=== PATIENT | female | born 1950 | race Caucasian/White ===

== ENCOUNTER → 2018-07-28 06:49 | Outpatient (CLI) | payer MEDICARE, OTHER, SELFPAY ==
[2018-07-28 08:57] LABS: Hemoglobin A1c 6.8 % (4.2-6.3)
[2018-07-28 08:59] LABS: ALB/GLOB Ratio 0.9 RATIO (0.9-2.4); AST(SGOT) 31 U/L (15-37); Alanine Aminotransfer ALT/SGPT 25 U/L (13-56); Albumin, Serum 3.3 g/dL (3.2-5.0); Alkaline Phosphatase 69 U/L (45-117); Anion Gap 5 (5-15); BUN 14 mg/dL (7-18); BUN/Creat Ratio 18.1 RATIO (10-20); Calcium,Total 8.7 mg/dL (8.5-10.1); Chloride 107 mmol/L (98-107); Cholesterol 188 mg/dL (200); Creatinine, Serum 0.78 mg/dL (0.55-1.02); EST Glomerular Filtration Rate 79 mL/min (>60); Est Glom Filt Rate - Afr Amer 96 mL/min (>60); Globulin 3.5 g/dL (2.2-4.2); Glucose 133 mg/dL (74-106); High Density Lipoprotein 58 mg/dL; Magnesium 1.9 mg/dL (1.6-2.6); Potassium 3.6 mmol/L (3.5-5.1); Protein, Total 6.8 g/dL (6.4-8.2); Sodium Level 141 mmol/L (136-145); Thyroid Stim Hormone (TSH) 3.52 uIU/mL (0.358-3.74); Triglycerides 143 mg/dL; Very Low Density Lipoprotein 29 mg/dL (5-40)
== END ==
PROVIDERS: Family Provider Family Medicine; PCP Family Medicine; Referring Provider Family Medicine; Visit Provider Family Medicine
DX: E11.9 Type 2 diabetes mellitus without complications (principal); I10 Essential (primary) hypertension; E78.00 Pure hypercholesterolemia, unspecified
CPT/HCPCS: 36415; 80053; 80061; 83036; 83735; 84443

== ENCOUNTER → 2019-01-15 | Outpatient (CLI) | payer MEDICARE, OTHER, SELFPAY ==
[2019-01-15 10:41] LABS: Hemoglobin A1c 6.6 % (4.2-6.3)
[2019-01-15 10:58] LABS: ALB/GLOB Ratio 0.9 RATIO (0.9-2.4); AST(SGOT) 27 U/L (15-37); Alanine Aminotransfer ALT/SGPT 30 U/L (13-56); Albumin, Serum 3.3 g/dL (3.2-5.0); Alkaline Phosphatase 78 U/L (45-117); Anion Gap 8 (5-15); BUN 11 mg/dL (7-18); BUN/Creat Ratio 13.3 RATIO (10-20); Calcium,Total 8.7 mg/dL (8.5-10.1); Chloride 105 mmol/L (98-107); Cholesterol 179 mg/dL (200); Creatinine, Serum 0.83 mg/dL (0.55-1.02); EST Glomerular Filtration Rate 73 mL/min (>60); Est Glom Filt Rate - Afr Amer 89 mL/min (>60); Globulin 3.7 g/dL (2.2-4.2); Glucose 132 mg/dL (74-106); High Density Lipoprotein 60 mg/dL; Magnesium 2.1 mg/dL (1.6-2.6); Potassium 3.9 mmol/L (3.5-5.1); Sodium Level 142 mmol/L (136-145); Thyroid Stim Hormone (TSH) 1.84 uIU/mL (0.358-3.74); Triglycerides 142 mg/dL; Very Low Density Lipoprotein 28 mg/dL (5-40)
== END | disposition home or self-care (01) ==
LOC: LAB 01-13 09:39 → LAB.FUTURE 09:20 → LAB 09:27
PROVIDERS: Family Provider Family Medicine; PCP Family Medicine; Referring Provider Family Medicine; Visit Provider Family Medicine
DX: E11.9 Type 2 diabetes mellitus without complications (principal); I10 Essential (primary) hypertension; E78.00 Pure hypercholesterolemia, unspecified
CPT/HCPCS: 36415; 80053; 80061; 83036; 83735; 84443

== ENCOUNTER → 2019-07-09 09:40 | Outpatient (CLI) | payer MEDICARE, OTHER, SELFPAY ==
[2019-07-09 10:14] LABS: Vitamin B12 352 pg/mL (211-911)
[2019-07-09 10:22] LABS: ALB/GLOB Ratio 0.9 RATIO (0.9-2.4); AST(SGOT) 22 U/L (15-37); Alanine Aminotransfer ALT/SGPT 22 U/L (13-56); Albumin, Serum 3.3 g/dL (3.2-5.0); Alkaline Phosphatase 79 U/L (45-117); Anion Gap 7 (5-15); BUN 13 mg/dL (7-18); BUN/Creat Ratio 15.1 RATIO (10-20); Chloride 108 mmol/L (98-107); Cholesterol 190 mg/dL (200); Creatinine, Serum 0.86 mg/dL (0.55-1.02); EST Glomerular Filtration Rate 70 mL/min (>60); Est Glom Filt Rate - Afr Amer 85 mL/min (>60); Globulin 3.6 g/dL (2.2-4.2); Glucose 150 mg/dL (74-106); High Density Lipoprotein 63 mg/dL; Potassium 3.7 mmol/L (3.5-5.1); Protein, Total 6.9 g/dL (6.4-8.2); Sodium Level 143 mmol/L (136-145); Triglycerides 210 mg/dL; Very Low Density Lipoprotein 42 mg/dL (5-40)
[2019-07-09 10:28] LABS: Hemoglobin A1c 7.1 % (4.2-6.3)
== END ==
PROVIDERS: PCP Family Medicine; Referring Provider Family Medicine; Visit Provider Family Medicine
DX: E11.9 Type 2 diabetes mellitus without complications (principal); I10 Essential (primary) hypertension; E78.00 Pure hypercholesterolemia, unspecified
CPT/HCPCS: 36415; 80053; 80061; 82607; 83036; 83735

== ENCOUNTER → 2019-09-29 09:27 | Outpatient (CLI) | payer MEDICARE, SELFPAY ==
--- NOTE | 2019-09-29 09:29 | US_ITS ---
PROCEDURES: ULTRASOUND AORTA REASON FOR EXAM: Female, 68 years old. Screening for AAA TECHNIQUE: Ultrasound evaluation of the aorta was performed with real-time and static edge-scale imaging. COMPARISON: None. FINDINGS: There is no elongation or tortuosity of the abdominal aorta. Aorta measures: Proximal 2.1 cm. Middle 1.6 cm. Distal 1.7 cm. Aorta measure transversely: Proximal 1.8 cm. Middle 1.3 cm. Distal 1.3 cm. Right iliac artery measures: 1.2 cm. Right iliac artery measure transversely: 0.9 cm. Left iliac artery measures: 1.0 cm. Left iliac artery measure transversely: 0.9 cm. There is no demonstrated aneurysm.. US/Aorta IMPRESSION: Normal abdominal aorta. Electronically Signed: Brent Fleming, at 13:50 EDT , Service support ,
--- NOTE | 2019-09-29 09:29 | BI_ITS ---
MAMMOGRAPHY - BILATERAL SCREENING REASON FOR EXAM: Female, 68 years old. Routine annual screening examination. PERTINENT HISTORY: Non-contributory. TECHNIQUE: Digital bilateral breast kirill (3D mammographic acquisition) in the CC and MLO projections. 2-D mediolateral oblique (MLO) and craniocaudad (CC) views of both breasts were obtained. CAD: Full Field Digital Mammography with Computer Added Detection was performed. COMPARISON: Comparison is made with prior outside examination dated 09/17/2017. FINDINGS: Breast Composition: The breasts are almost entirely fatty. There are no dominant masses or suspicious calcifications. No other significant abnormalities are identified. There has been no significant change since the prior study. BI/SCREEN MAMM (CAD) W/KIRILL BILAT IMPRESSION: Stable bilateral screening mammogram. Yearly follow-up mammogram recommended. (A) ASSESSMENT CATEGORY: BIRADS Category 1: Negative. A letter regarding these results will be sent to the patient by the facility within 30 days. Approximately 10% of breast cancers are not detected by mammography. A normal mammogram should not delay biopsy of a clinically suspicious abnormality. [id number] Electronically Signed: Brent Fleming, at 11:07 EDT , Service support ,
--- NOTE | 2019-09-29 10:14 | BD_ITS ---
STUDY: DUAL ENERGY X-RAY ABSORPTIOMETRY / DXA REASON FOR EXAM: Female, 68 years old. MORTGAGE LOAN REVIEWER-SURGICAL EARLY AT 46 YRS OLD -- HX OF HRT FOR 1 YR IN PAST -- DIABETIC- TAKES MEDICATION -- TAKES MULTIVITAMIN -- DOES LITTLE EXERCISE -- HX OF LEFT ANKLE FX -- LAURA OF 0.75 INCH TECHNIQUE: Bone Mineral Density (BMD) measurements of lumbar spine and bilateral hips were obtained. COMPARISON: None. FINDINGS: Lumbar Spine (L1-L4): g/cm2 (1.147) / T-score (-0.2) / Z-score (1.4) Findings are suggestive of normal bone density with a low fracture risk. Left Femur Total: g/cm2 (0.925) / T-score (-0.7) / Z-score (0.6) Left Femoral Neck: g/cm2 (0.820) / T-score (-1.6) / Z-score (0.0) Right Femur Total: g/cm2 (0.942) / T-score (-0.4) / Z-score (0.8) Right Femoral Neck: g/cm2 (0.816) / T-score (-1.6) / Z-score (-0.1) BD/Dexa Bone Density Study IMPRESSION: The patient is considered osteopenic as outlined below according to World Jules Organization (WHO) criteria with a moderate fracture risk. Reference Information: The T-score is the number of standard deviations above or below the standard which is normal for young adults at their peak bone mineral density. The World Health Organization (WHO) interprets the T-scores as follows: Above -1 Normal bone density Between -1 and -2.5 Osteopenia Equal to / or below -2.5 Osteoporosis As a practical clinical guideline, osteopenia may be graded as follows: Mild -1 through -1.5 Moderate -1.6 through -2.0 Severe -2.1 through -2.4 The Z-score is the number of standard deviations above or below age-matched controls. A Z-score of less than -1.5 would be considered abnormal. References: 1. NIH Osteoporosis and Related Bone Diseases http://www.osteo.org 2. International Society for Clinical Densitometry http://www.iscd.org 3. National Osteoporosis Foundation http://www.nof.org Electronically Signed: Brent Fleming, at 15:38 EDT , Service support ,
== END ==
PROVIDERS: PCP Family Medicine; Referring Provider Family Medicine; Visit Provider Family Medicine
DX: Z12.31 Encounter for screening mammogram for malignant neoplasm of breast (principal); Z78.0 Asymptomatic menopausal state; Z13.6 Encounter for screening for cardiovascular disorders
CPT/HCPCS: 76775; 77063; 77067; 77080

== ENCOUNTER → 2020-01-10 06:03 | Outpatient (CLI) | payer MEDICARE, OTHER, SELFPAY ==
[2020-01-10 07:05] LABS: Basophil# 0.07 X10^3/uL; Basophil% 1.1 % (0-1); Eosinophils% 9.7 % (0-5); Hemoglobin 14.7 g/dL (12.0-15.0); Mean Corp Hgb Conc 33.4 g/dL (32-36); Mean Corpuscular Hgb 31.4 pg (27.0-32.0); Mean Platelet Vol. 9.9 fl (6.2-12.0); Monocyte# 0.61 X10^3/uL; Monocyte% 9.9 % (0-10); NRBC Flagged by Analyzer 0 % (0-5); Neutrophil # 1.98 X10^3/uL (2.7-7.7); Neutrophil % 32.1 % (47-70); Platelet Count 250 K/mm3 (150-450); RBC Distribution Width CV 13.6 % (11.6-14.6); RBC Distribution Width SD 47.5 fl (35.1-43.9); Red Blood Count 4.68 M/mm3 (4.2-5.4); White Blood Count 6.2 K/mm3 (4.4-11.0)
[2020-01-10 07:55] LABS: ALB/GLOB Ratio 0.9 RATIO (0.9-2.4); AST(SGOT) 29 U/L (15-37); Alanine Aminotransfer ALT/SGPT 29 U/L (13-56); Albumin, Serum 3.2 g/dL (3.2-5.0); Alkaline Phosphatase 79 U/L (45-117); Anion Gap 7 (5-15); BUN 13 mg/dL (7-18); BUN/Creat Ratio 16.3 RATIO (10-20); Calcium,Total 8.6 mg/dL (8.5-10.1); Chloride 105 mmol/L (98-107); Cholesterol 154 mg/dL (200); EST Glomerular Filtration Rate 76 mL/min (>60); Est Glom Filt Rate - Afr Amer 92 mL/min (>60); Globulin 3.6 g/dL (2.2-4.2); Glucose 110 mg/dL (74-106); High Density Lipoprotein 65 mg/dL; Potassium 3.6 mmol/L (3.5-5.1); Protein, Total 6.8 g/dL (6.4-8.2); Sodium Level 141 mmol/L (136-145); Thyroid Stim Hormone (TSH) 3.45 uIU/mL (0.358-3.74); Triglycerides 157 mg/dL; Very Low Density Lipoprotein 31 mg/dL (5-40)
== END ==
PROVIDERS: PCP Family Medicine; Referring Provider Family Medicine; Visit Provider Family Medicine
DX: I10 Essential (primary) hypertension (principal); E78.5 Hyperlipidemia, unspecified; E11.65 Type 2 diabetes mellitus with hyperglycemia
CPT/HCPCS: 36415; 80053; 80061; 82043; 84443; 85025

== ENCOUNTER 2020-02-29 20:37 | Emergency (ER) | payer MEDICARE, OTHER, SELFPAY ==
[2020-02-29 20:39] VITALS: BP 159/66; PULSE 76; RESP 16; TEMP 36.2; O2SAT 94; BMI 41.8
--- NOTE | 2020-02-29 20:52 | ED.DCSUM_ITS ---
History of Present Illness Chief Complaint: Sore Throat Informant: Patient Onset: Today Context: Sudden Onset Timing: Continuous Quality: Swelling inferior and anterior right ear Location: Pain Current Severity: Mild Maximum Severity: Moderate Worsened by: Nothing Relieved by: - - Nothing Associated Symptoms: - - No complaint of fever or chills. Did report right ear pain. Denies dental pain. Denies difficulty opening or closing her mouth. Denies change in voice or difficulty swallowing. No history of cancer. No history of night sweats or weight loss. Narrative: Patient is a pleasant 69-year-old woman who presents with abrupt onset of pain and swelling that she localizes over the right parotid gland. She denies any odor to her breath. She denies any fever or chills. She denies dental pain. She denies difficulty opening or closing her mouth. She denies dysphonia or dysphagia. There is no history of drooling. Prior similar symptoms: No Recent Illness/Hospitalization: No - Past Medical History (1) History of type 2 diabetes mellitus Status: Acute (2) History of hypertension Status: Acute Past Medical History - Allergies and Home Meds Allergies/Adverse Reactions: Allergies No Known Allergies Allergy (Verified 02/29/20 20:38) Primary Care Physician: James Coffman MD [Primary Care Provider] - Prior records reviewed: Yes Surgical History: noncontributory Lives: Alone Smoking Status: Never smoker Alcohol: None Review of Systems General: Denies: Chills, Fever, Malaise, Subjective, Sweats Eyes: Denies: Visual changes - bilaterally, Blurred Vision - bilaterally ENT: Reports: Right ear pain, - - Complains of pain right side of her neck/face.. Denies: Bilateral ear pain, Rhinorrhea, Sore throat Respiratory: Denies: Dyspnea, Cough, Sputum, Dyspnea on exertion Gastrointestinal: Denies: Nausea, Vomiting Skin: Denies: Rash Neurological: Denies: Headache Allergy: Denies: Uticaria, Swelling of the mouth, Swelling of the tongue Physical Exam Vital Signs/Narrative: Vital Signs Temp Pulse Resp BP Pulse Ox 02/29/20 20:39 97.1 F L 76 16 159/66 H 94 Inital Vital Signs reviewed: Yes General: Well nourished, Well developed, Obese Head: Normocephalic, Atraumatic ENT: Moist mucous membranes, Nasal congestion, No nasal trauma, No rhinorrhea, Sinus tenderness, TM's clear, - - There is tenderness over the right parotid. Pressure/milking of the parotid reveals no drainage from Stensen's duct. There is no cervical lymphadenopathy. Trachea is midline. There is no inspiratory expiratory stridor.. Negative for: TM erythema left, TM erythema right Mouth/Throat: Normal inspection lips/gums, Normal oral mucosa, No dental tenderness, No focal abscess, Normal posterior oropharynx, No sublingual edema, Normal Stensen's duct Neck: Supple, No lymphadenopathy, No JVD. Negative for: Nontender Cardiovascular: Regular rate, Regular rhythm, No murmurs, Normal S1, Normal S2 Respiratory: No distress, CTA bilaterally Skin: Normal color, No rash, No Trauma. Negative for: Cyanosis, Diaphoresis, Jaundice Neurological: Alert, Oriented x3, Cranial nerves II-XII grossly intact, Normal Strength, Normal Sensation, Normal DTR Psychological: Normal affect Diagnostic/Tx/Re-eval - Medical Decision Making Differential diagnosis includes Sjogren's, sialolithiasis, viral infection due to mumps, flu or other. The latter is unlikely since this is unilateral. Patient was treated with lemon drops and amoxicillin. ED Disposition - Plan for ED Patient: Disposition: Home or Assisted Living Diagnosis: Parotid sialolithiasis Instructions: ED Salivary Gland Stones Prescriptions: Amoxicillin 500 mg PO TID #14 tab Transmission Status: Pending to [facility] Referrals: James Coffman MD [Primary Care Provider] - As Needed Jordan Swanson MD [STAFF PHYSICIAN] - 3-5 Days if not improving Additional Instructions: Suck on lemon drops hourly while awake.
[2020-02-29] MEDS: AMOXICILLIN 500 MG CAPSULE PO (21:03)
== END 2020-02-29 21:20 | disposition home or self-care (01) ==
LOC: ED 21:09
PROVIDERS: Emergency Provider Emergency Medicine; PCP Family Medicine
DX: K11.5 Sialolithiasis (principal); E66.9 Obesity, unspecified
CPT/HCPCS: 99283

== ENCOUNTER 2020-05-09 15:08 | Outpatient (RCR) | payer MEDICARE, OTHER, SELFPAY ==
[2020-05-09] MEDS: COVID-19 VACC, MRNA(PFIZER)/PF 30 MCG/0.3 ML SYRINGE IM (09:41)
[2020-05-30] MEDS: COVID-19 VACC, MRNA(PFIZER)/PF 30 MCG/0.3 ML SYRINGE IM (09:22)
== END 2020-08-08 23:59 ==
LOC: IMMUN 15:08
PROVIDERS: PCP Family Medicine; Visit Provider Family Medicine
DX: Z23 Encounter for immunization (principal)
CPT/HCPCS: 0001A; 0002A; 91300

== ENCOUNTER → 2020-07-03 06:07 | Outpatient (CLI) | payer MEDICARE, OTHER, SELFPAY ==
[2020-07-03 07:51] LABS: Hemoglobin A1c 6.2 % (3.8-5.6)
[2020-07-03 08:11] LABS: ALB/GLOB Ratio 0.9 RATIO (0.9-2.4); AST(SGOT) 24 U/L (15-37); Alanine Aminotransfer ALT/SGPT 25 U/L (13-56); Alkaline Phosphatase 66 U/L (45-117); Anion Gap 9 (5-15); BUN 14 mg/dL (7-18); BUN/Creat Ratio 20.6 RATIO (10-20); Calcium,Total 8.5 mg/dL (8.5-10.1); Chloride 106 mmol/L (98-107); Cholesterol 224 mg/dL (200); Creatinine, Serum 0.68 mg/dL (0.55-1.02); EST Glomerular Filtration Rate 92 mL/min (>60); Est Glom Filt Rate - Afr Amer 111 mL/min (>60); Globulin 3.5 g/dL (2.2-4.2); Glucose 118 mg/dL (74-106); High Density Lipoprotein 51 mg/dL; Potassium 3.4 mmol/L (3.5-5.1); Protein, Total 6.5 g/dL (6.4-8.2); Sodium Level 141 mmol/L (136-145); Thyroid Stim Hormone (TSH) 2.89 uIU/mL (0.358-3.74); Triglycerides 282 mg/dL; Very Low Density Lipoprotein 56 mg/dL (5-40)
[2020-07-03 09:35] LABS: Vitamin B12 250 pg/mL (211-911); Vitamin D,25 Hydroxy 25.7 ng/mL
== END ==
PROVIDERS: PCP Family Medicine; Visit Provider Family Medicine
DX: E11.9 Type 2 diabetes mellitus without complications (principal); I10 Essential (primary) hypertension; E78.2 Mixed hyperlipidemia; E55.9 Vitamin D deficiency, unspecified; Z79.899 Other long term (current) drug therapy
CPT/HCPCS: 36415; 80053; 80061; 82306; 82607; 83036; 83735; 84443

== ENCOUNTER → 2021-01-01 06:16 | Outpatient (CLI) | payer MEDICARE, OTHER, SELFPAY ==
[2021-01-01 07:29] LABS: ALB/GLOB Ratio 0.8 RATIO (0.9-2.4); AST(SGOT) 26 U/L (15-37); Alanine Aminotransfer ALT/SGPT 28 U/L (13-56); Albumin, Serum 3.1 g/dL (3.2-5.0); Alkaline Phosphatase 76 U/L (45-117); Anion Gap 4 (5-15); BUN 11 mg/dL (7-18); BUN/Creat Ratio 13.7 RATIO (10-20); Calcium,Total 8.8 mg/dL (8.5-10.1); Chloride 107 mmol/L (98-107); Cholesterol 151 mg/dL (200); EST Glomerular Filtration Rate 76 mL/min (>60); Est Glom Filt Rate - Afr Amer 92 mL/min (>60); Globulin 3.8 g/dL (2.2-4.2); Glucose 141 mg/dL (74-106); High Density Lipoprotein 58 mg/dL; Magnesium 1.8 mg/dL (1.6-2.6); Potassium 3.6 mmol/L (3.5-5.1); Protein, Total 6.9 g/dL (6.4-8.2); Sodium Level 142 mmol/L (136-145); Thyroid Stim Hormone (TSH) 2.39 uIU/mL (0.358-3.74); Triglycerides 233 mg/dL; Very Low Density Lipoprotein 47 mg/dL (5-40)
[2021-01-01 09:44] LABS: Hemoglobin A1c 6.3 % (3.8-5.6)
[2021-01-01 10:38] LABS: Vitamin B12 706 pg/mL (211-911); Vitamin D,25 Hydroxy 36.5 ng/mL
== END ==
PROVIDERS: PCP Family Medicine; Referring Provider Family Medicine; Visit Provider Family Medicine
DX: E11.9 Type 2 diabetes mellitus without complications (principal); I10 Essential (primary) hypertension; E78.2 Mixed hyperlipidemia; E55.9 Vitamin D deficiency, unspecified; E53.8 Deficiency of other specified B group vitamins
CPT/HCPCS: 36415; 80053; 80061; 82306; 82607; 83036; 83735; 84443

== ENCOUNTER → 2021-02-14 12:17 | Outpatient (CLI) | payer MEDICARE, OTHER, SELFPAY ==
--- NOTE | 2021-02-14 12:22 | RAD_ITS ---
STUDY: X-RAY - LUMBAR SPINE REASON FOR EXAM: Female, 70 years old. Lumbago with sciatica, unspecified side TECHNIQUE: 5 view(s) of the lumbar spine were obtained. COMPARISON: None FINDINGS: Normal lumbar lordosis. There is no substantial scoliosis. There is a normal alignment of the vertebrae. There is diffuse demineralization with multi-level endplate spondylosis. There is multi-level degenerative disc disease with multi-level disc space narrowing. There is no acute demonstrated fracture. Chronic compression fractures affecting the superior endplates of L1 and L2 The soft tissue structures are unremarkable. RAD/L/S Spine Min 4 Views IMPRESSION: Degenerative changes of the spine, as detailed above. No acute findings Electronically Signed: Ten Gibbs MD at 16:53 EST , Service support ,
== END ==
PROVIDERS: PCP Family Medicine; Referring Provider Family Medicine; Visit Provider Family Medicine
DX: M54.50 Low back pain, unspecified (principal)
CPT/HCPCS: 72110

== ENCOUNTER → 2021-07-02 | Outpatient (CLI) | payer MEDICARE, OTHER, SELFPAY ==
[2021-07-02 07:35] LABS: Microalbumin,Random Urine 31.6 mg/L (NO RANGE EST.); Microalbumin:Creatinine Ratio 18.9 mg/g CRE (<30 mg/g CRE)
[2021-07-02 07:45] LABS: Hemoglobin A1c 6.3 % (3.8-5.6)
[2021-07-02 07:46] LABS: ALB/GLOB Ratio 0.8 RATIO (0.9-2.4); AST(SGOT) 29 U/L (15-37); Alanine Aminotransfer ALT/SGPT 27 U/L (13-56); Albumin, Serum 3.2 g/dL (3.2-5.0); Alkaline Phosphatase 84 U/L (45-117); BUN 10 mg/dL (7-18); Calcium,Total 9.1 mg/dL (8.5-10.1); Cholesterol 169 mg/dL (200); Creatinine, Serum 0.77 mg/dL (0.55-1.02); EST Glomerular Filtration Rate 79 mL/min (>60); Est Glom Filt Rate - Afr Amer 96 mL/min (>60); Globulin 3.9 g/dL (2.2-4.2); Glucose 127 mg/dL (74-106); Protein, Total 7.1 g/dL (6.4-8.2)
[2021-07-02 07:47] LABS: Anion Gap 6 (5-15); Chloride 108 mmol/L (98-107); High Density Lipoprotein 58 mg/dL; Magnesium 2.1 mg/dL (1.6-2.6); Sodium Level 142 mmol/L (136-145); Triglycerides 250 mg/dL; Very Low Density Lipoprotein 50 mg/dL (5-40)
== END | disposition home or self-care (01) ==
PROVIDERS: PCP Family Medicine; Referring Provider Family Medicine; Visit Provider Family Medicine
DX: E11.9 Type 2 diabetes mellitus without complications (principal); I10 Essential (primary) hypertension; E78.2 Mixed hyperlipidemia
CPT/HCPCS: 36415; 80053; 80061; 82043; 82570; 83036; 83735

== ENCOUNTER → 2021-08-09 | Outpatient (CLI) | payer MEDICARE, OTHER, SELFPAY ==
--- NOTE | 2021-08-09 10:40 | BI_ITS ---
MAMMOGRAPHY - BILATERAL SCREENING REASON FOR EXAM: Female, 70 years old. Routine annual screening examination. PERTINENT HISTORY: Non-contributory. TECHNIQUE: Digital bilateral breast kirill (3D mammographic acquisition) in the CC and MLO projections. 2-D mediolateral oblique (MLO) and craniocaudad (CC) views of both breasts were obtained. CAD: Full Field Digital Mammography with Computer Added Detection was performed. COMPARISON: Comparison is made with prior study 09/29/2019. FINDINGS: Breast Composition: There are scattered areas of fibroglandular density. There are no dominant masses or suspicious calcifications. No other significant abnormalities are identified. There has been no significant change since the prior study. BI/SCRN MAMM (CAD)W/KIRILL BILAT IMPRESSION: Stable bilateral screening mammogram. Yearly follow-up mammogram recommended. (A) ASSESSMENT CATEGORY: BIRADS Category 1: Negative. A letter regarding these results will be sent to the patient by the facility within 30 days. Approximately 10% of breast cancers are not detected by mammography. A normal mammogram should not delay biopsy of a clinically suspicious abnormality. [id number] Electronically Signed: Brent Fleming MD at 12:09 EDT ,
== END | disposition home or self-care (01) ==
LOC: OPBI 10:39
PROVIDERS: PCP Family Medicine; Referring Provider Family Medicine; Visit Provider Family Medicine
DX: Z12.31 Encounter for screening mammogram for malignant neoplasm of breast (principal)
CPT/HCPCS: 77063; 77067

== ENCOUNTER → 2022-01-01 | Outpatient (CLI) | payer MEDICARE, OTHER, SELFPAY ==
[2022-01-01 08:47] LABS: Vitamin B12 1039 pg/mL (211-911); Vitamin D,25 Hydroxy 54.4 ng/mL
[2022-01-01 08:56] LABS: ALB/GLOB Ratio 0.9 RATIO (0.9-2.4); AST(SGOT) 23 U/L (15-37); Alanine Aminotransfer ALT/SGPT 30 U/L (13-56); Albumin, Serum 3.2 g/dL (3.2-5.0); Alkaline Phosphatase 82 U/L (45-117); Anion Gap 8 (5-15); BUN 11 mg/dL (7-18); BUN/Creat Ratio 13.7 RATIO (10-20); Calcium,Total 9.2 mg/dL (8.5-10.1); Chloride 106 mmol/L (98-107); Cholesterol 176 mg/dL (200); EST Glomerular Filtration Rate 75 mL/min (>60); Est Glom Filt Rate - Afr Amer 91 mL/min (>60); Globulin 3.7 g/dL (2.2-4.2); Glucose 153 mg/dL (74-106); High Density Lipoprotein 61 mg/dL; Magnesium 1.7 mg/dL (1.6-2.6); Potassium 3.7 mmol/L (3.5-5.1); Protein, Total 6.9 g/dL (6.4-8.2); Sodium Level 141 mmol/L (136-145); Thyroid Stim Hormone (TSH) 3.39 uIU/mL (0.358-3.74); Triglycerides 237 mg/dL; Very Low Density Lipoprotein 47 mg/dL (5-40)
[2022-01-01 09:09] LABS: Hemoglobin A1c 6.9 % (3.8-5.6)
== END | disposition home or self-care (01) ==
LOC: LAB 07:36
PROVIDERS: PCP Family Medicine; Referring Provider Family Medicine; Visit Provider Family Medicine
DX: E11.9 Type 2 diabetes mellitus without complications (principal); I10 Essential (primary) hypertension; E78.2 Mixed hyperlipidemia; E53.8 Deficiency of other specified B group vitamins; E55.9 Vitamin D deficiency, unspecified
CPT/HCPCS: 36415; 80053; 80061; 82306; 82607; 83036; 83735; 84443

== ENCOUNTER → 2022-07-05 | Outpatient (CLI) | payer MEDICARE, OTHER, SELFPAY ==
[2022-07-05 08:14] LABS: ALB/GLOB Ratio 0.8 RATIO (0.9-2.4); AST(SGOT) 28 U/L (15-37); Alanine Aminotransfer ALT/SGPT 30 U/L (13-56); Alkaline Phosphatase 74 U/L (45-117); Anion Gap 7 (5-15); BUN 8 mg/dL (7-18); BUN/Creat Ratio 12.5 RATIO (10-20); Calcium,Total 8.7 mg/dL (8.5-10.1); Chloride 110 mmol/L (98-107); Cholesterol 152 mg/dL (200); Creatinine, Serum 0.64 mg/dL (0.55-1.02); EST Glomerular Filtration Rate 98 mL/min (>60); Est Glom Filt Rate - Afr Amer 118 mL/min (>60); Globulin 3.7 g/dL (2.2-4.2); Glucose 112 mg/dL (74-106); High Density Lipoprotein 55 mg/dL; Magnesium 1.9 mg/dL (1.6-2.6); Potassium 3.6 mmol/L (3.5-5.1); Protein, Total 6.7 g/dL (6.4-8.2); Sodium Level 144 mmol/L (136-145); Thyroid Stim Hormone (TSH) 2.49 uIU/mL (0.358-3.74); Triglycerides 184 mg/dL; Very Low Density Lipoprotein 37 mg/dL (5-40)
[2022-07-05 08:20] LABS: Hemoglobin A1c 6.1 % (3.8-5.6)
== END | disposition home or self-care (01) ==
LOC: LAB 06:10
PROVIDERS: PCP Family Medicine; Referring Provider Family Medicine; Visit Provider Family Medicine
DX: E11.9 Type 2 diabetes mellitus without complications (principal); I10 Essential (primary) hypertension; E78.2 Mixed hyperlipidemia
CPT/HCPCS: 36415; 80053; 80061; 83036; 83735; 84443

== ENCOUNTER → 2022-08-02 | Outpatient (CLI) | payer MEDICARE, OTHER, SELFPAY ==
--- NOTE | 2022-08-02 06:54 | MRI_ITS ---
STUDY: MRI BRAIN WITHOUT CONTRAST REASON FOR EXAM: Female, 71 years old. TREMORS WORSENING OVER THE LAST YEAR, EVENING HEADACHES TECHNIQUE: MRI examination brain fusion protocol including multiplanar multiecho noncontrast imaging. Contrast: No contrast administered. COMPARISON: 08/22/2016 HEMISPHERES, CEREBELLUM AND BRAINSTEM: 1. The cerebral parenchyma, ventricular system, subarachnoid spaces have normal configuration and density. There is a normal gyral pattern. There is normal edge/white differentiation. No midline shift.. 2. Minimal age consistent involutional changes and no significant white matter disease noted. 3. No intraparenchymal mass, hemorrhage, or acute territorial infarct. 4. The cerebellum, brainstem, basilar and suprasellar cisterns have normal appearance. No Chiari malformation. PITUITARY: Infundibulum and pituitary have normal configuration. Midline structures appear normal. CSF SPACES: Appropriate for age. No hydrocephalus. Basal cisterns are patent. VESSELS: 1. There are normal flow voids noted in the great vessels at the skull base ORBITS AND PARANASAL SINUSES: 1. Both globes, extraocular muscles, optic nerves and retrobulbar fat appear unremarkable. 2. Minimal mucosal thickening without air-fluid levels or tye sinus opacification. BONY ELEMENTS: Bony elements of the cranial vault, facial skeleton and skull base have normal appearance. SCALP AND SOFT TISSUES: Normal appearance of the soft tissues of the scalp and the visualized face OTHER: None MRI/Brain without Contrast IMPRESSION: 1. No intracranial mass, hemorrhage, or acute territorial infarct. No significant white matter abnormality noted. 2. Normal symmetric appearance of the optic nerves on current exam. 3. No radiographically significant sinus disease. Electronically Signed: Albin Powers MD at 0:16 EDT ,
== END | disposition home or self-care (01) ==
LOC: MRI 06:37
PROVIDERS: PCP Family Medicine; Referring Provider Family Medicine; Visit Provider Family Medicine
DX: R25.1 Tremor, unspecified (principal); G51.9 Disorder of facial nerve, unspecified
CPT/HCPCS: 70551

== ENCOUNTER → 2023-01-06 | Outpatient (CLI) | payer MEDICARE, OTHER, SELFPAY ==
[2023-01-06 07:52] LABS: ALB/GLOB Ratio 0.8 RATIO (0.9-2.4); AST(SGOT) 25 U/L (15-37); Alanine Aminotransfer ALT/SGPT 26 U/L (13-56); Albumin, Serum 3.1 g/dL (3.2-5.0); Alkaline Phosphatase 77 U/L (45-117); Anion Gap 6 (5-15); BUN 12 mg/dL (7-18); BUN/Creat Ratio 15.5 RATIO (10-20); Chloride 106 mmol/L (98-107); Cholesterol 183 mg/dL (200); Creatinine, Serum 0.77 mg/dL (0.55-1.02); EST Glomerular Filtration Rate 79 mL/min (>60); Est Glom Filt Rate - Afr Amer 95 mL/min (>60); Globulin 3.7 g/dL (2.2-4.2); Glucose 139 mg/dL (74-106); High Density Lipoprotein 59 mg/dL; Potassium 3.6 mmol/L (3.5-5.1); Protein, Total 6.8 g/dL (6.4-8.2); Sodium Level 142 mmol/L (136-145); Thyroid Stim Hormone (TSH) 3.57 uIU/mL (0.358-3.74); Triglycerides 240 mg/dL; Very Low Density Lipoprotein 48 mg/dL (5-40)
[2023-01-06 08:44] LABS: Hemoglobin A1c 6.3 % (3.8-5.6)
[2023-01-06 09:53] LABS: Vitamin B12 521 pg/mL (211-911); Vitamin D,25 Hydroxy 60.3 ng/mL
== END | disposition home or self-care (01) ==
LOC: LAB 06:01
PROVIDERS: PCP Family Medicine; Referring Provider Family Medicine; Visit Provider Family Medicine
DX: E11.9 Type 2 diabetes mellitus without complications (principal); I10 Essential (primary) hypertension; E78.2 Mixed hyperlipidemia; E55.9 Vitamin D deficiency, unspecified
CPT/HCPCS: 36415; 80053; 80061; 82306; 82607; 83036; 83735; 84443

== ENCOUNTER → 2023-05-12 | Outpatient (CLI) | payer MEDICARE, OTHER, SELFPAY ==
--- NOTE | 2023-05-12 10:59 | RAD_ITS ---
INDICATION: knee pain. lateral. EXAMINATION/TECHNIQUE: X-RAY - RIGHT XR Knee Complete 4 Views or More 4 VIEWS COMPARISON: No relevant prior comparison study available FINDINGS: SOFT TISSUES: No soft tissue swelling or gas. No radiopaque foreign body. BONES/JOINTS: No acute fracture or subluxation.. Normal alignment. Small marginal osteophytes at the medial and lateral compartments. Enthesophyte at the patella. Small joint effusion suspected.. No sclerotic or destructive changes observed. RAD/Knee 4 or More Views IMPRESSION: No fracture or malalignment. Mild degenerative change. Electronically Signed: Anderson Rodriguez MD at 6:59 EDT ,
== END | disposition home or self-care (01) ==
PROVIDERS: PCP Family Medicine; Referring Provider Family Medicine; Visit Provider Family Medicine
DX: M25.561 Pain in right knee (principal)
CPT/HCPCS: 73564

== ENCOUNTER 2023-06-26 11:30 | Outpatient (RCR) | payer MEDICARE, OTHER, SELFPAY ==
--- NOTE | 2023-05-16 07:48 | HP.PTEVAL ---
Patient's Visit Information Visit Information Visit Information: LUIS LIN is a 72 year old F referred to Physical Therapy by Dr. Rubin García MD with a diagnosis of R knee pain. Date of Evaluation: 05/16/23 Physical Therapist: Amanuel Blanton, DPT, OCS, CSCS Visit Plan Frequency: 2x /Week Duration: 4-6 Weeks Plan: 2x/week for 4-6 as needed for 1. ROM R knee flexion 2. stretch and rollout B HS and quads, move to HEP 3. strength B hips to HEP 4 Consider gym based general strength for her health when knee not painful IE: given HS, HS stretch and SLR front 2x/day Subjective Subjective: Got pain in posterior R knee as a discomfort adn without any injury. Got worse adn started to make her limp adn came around lateral leg. Feels like it might give out or get sharp pain with certain movements. That started 3 weeks ago insidiously. Went to doctor as she could barely walk. Last day and half has been better. Taking tylenol and tried ice and heat but it is improving. Dr. García sent for PT. Putting foot in shoe hurts. Sleep is interrupted sometimes. Activities at home are careful and she watches a one year old and has to be careful it does not give out. Has not given out yet. Basic ADL are fine. ROm seems OK at times and worse at times. Steps at home and she can do them but it really pulled yesterday coming up. Employed: retired. Hobbies: taking care of one year old daily. Exercise: none Pain R knee: Pain Intensity (Out of 10): 0 Pain Intensity Range: 0 and 9 Objective Objective: Walks without antalgia today I, steps reciprocal without pain. transfers I bed an chair. AROM R knee 0-110 and L knee 0-120. tightness felt end of R knee flexion. HS and quad mod tight B, lots of pulling and cramps up in HS. reflexes 2/3 patella and achilles Sensation LE WNL to gross light touch. strength hips 3+ abd and ext, and flexion, knee 4- B knee flexion and ext without pain today. ankles strength 4/5. Core appears weak on transitions and unstable with testing hip flexion in sitting. - varus and valgus, - ant drawer, - post sag, - bounce home, - patellar grind today. good balance with ambulation and no knee giving out. Balance/Special Test Scores Lower Extremity Functional Score: 39 Goals Goal 1:: Full aROM R knee to 120 without pain Goal Time Frame: 2-4 Weeks Goal 2:: I appropriate stretching and strength LE to minimize future problems Goal Time Frame: 4-6 Weeks Goal 3:: maintain no antalgia or pain in R knee for one week Goal Time Frame: 4-6 Weeks Goal 4:: LEFS score 45 Goal Time Frame: 4-6 Weeks Rehabilitation Potential Physical Therapy Diagnosis: diminished ROM, flexibility adn strength R LE leading to discomfort adn limited activities Rehabilitation Potential: Fair Anticipated Interventions Patient/Client Instruction: Educate patient on: Condition and Plan of Care For the Purpose of:: To decrease pain, To increase ROM, To improve nutrient delivery to tissue, To increase tolerance to activity/condition/position, To improve ability of physical actions for home/community/work/leisure and To improve gait and locomotor functions Therapeutic Exercise to Include: Strength training, Flexibilty training, Gait and locomotor training, Passive ROM and Active ROM For the Purpose of:: To decrease pain, To increase ROM, To improve nutrient delivery to tissue, To improve muscle performance and motor function and To increase tolerance to activity/condition/position Manual Therapy Techniques to Include: Passive ROM and Soft tissue mobilization For the Purpose of:: To decrease pain, To increase ROM and To improve nutrient delivery to tissue TENS: Yes For the Purpose of:: To decrease pain Text: Thank you for the opportunity to evaluate your patient. For Medicare and Medicare HMO plans, please review the plan of care and approve it. It will need to be FAXED BACK to us at [phone] for Medicare purposes. For Medicare only, by signing this I certify the plan of care. Please let me know if there are questions or concerns regarding this plan of care. Physician Signature: Date:
--- NOTE | 2023-06-26 12:17 | HP.PTDCSUM ---
Discharge Summary D/C summary: It has been my pleasure to treat LUIS LIN referred by Dr. Gurpreet García MD, with the diagnosis of R knee pain for a total of 14 visit(s). Discharge Date: 06/26/23 Please see the following information for a summary of their discharge status. Subjective Subjective: Better. stornger and less pain in knee. Feels pretty great. Using ice on it still at times. No f/u with Raquel. Pain this week up to 09/09 with lying in bed but transient. Normally wakes up alot even before knee. Activities are normal but has to be careful. Noqw is member adn will continue I. Pain R knee: Pain Intensity (Out of 10): 3 Overall Improvement % Improvement: 80 Objective Objective/Function: 0-117 aROM R knee, walking without antalgia or pain today, steps reciprocally with one rail. Confident she can continue herself as a member. Goals Goal 1:: Full aROM R knee to 120 without pain Goal Progress: Progressing, 117 Goal 2:: I appropriate stretching and strength LE to minimize future problems Goal Progress: Goal Met Goal 3:: maintain no antalgia or pain in R knee for one week Goal Progress: Goal Met Goal 4:: LEFS score 45 Goal Progress: Goal Met Plan Plan: d/c D/C Information d/c sentence: If there are questions or concerns regarding this patient's physical therapy, please feel free to call me at [phone]. Thank you for the referral of this patient. Sincerely, Amanuel Blanton, DPT, OCS, CSCS Balance/Gait/Functional tests Balance/Special Test Scores Lower Extremity Functional Score: 60 30 Second Chair Rise Test Seconds: 17 Improvement % Improvement: 80
== END 2023-06-26 19:00 | disposition home or self-care (01) ==
LOC: PT 11:30
PROVIDERS: PCP Family Medicine; Referring Provider Family Medicine; Visit Provider Family Medicine
DX: M25.561 Pain in right knee (principal)
CPT/HCPCS: 97110; 97140; 97161; 97164; 97530

== ENCOUNTER → 2023-11-28 | Outpatient (CLI) | payer MEDICARE, OTHER, SELFPAY ==
[2023-11-28 11:11] LABS: Potassium 3.8 mmol/L (3.5-5.1)
== END | disposition home or self-care (01) ==
LOC: MFPLAB 08:44
PROVIDERS: PCP Family Medicine; Visit Provider Family Medicine
DX: E87.6 Hypokalemia (principal)
CPT/HCPCS: 36415; 84132

== ENCOUNTER → 2024-03-26 | Outpatient (CLI) | payer MEDICARE, OTHER, SELFPAY ==
--- NOTE | 2024-03-26 10:30 | BI_ITS ---
MAMMOGRAPHY - BILATERAL SCREENING REASON FOR EXAM: Female, 73 years old. Routine annual screening examination. PERTINENT HISTORY: Non-contributory. TECHNIQUE: Digital bilateral breast kirill (3D mammographic acquisition) in the CC and MLO projections. 2-D mediolateral oblique (MLO) and craniocaudad (CC) views of both breasts were obtained. CAD: Full Field Digital Mammography with Computer Added Detection was performed. COMPARISON: Comparison is made with prior study dated 04/11/2021 and September 29, 2019. FINDINGS: Breast Composition: There are scattered areas of fibroglandular density. There are no dominant masses or suspicious calcifications. No other significant abnormalities are identified. BI/SCRN MAMM (CAD)W/KIRILL BILAT IMPRESSION: Stable bilateral screening mammogram. Yearly follow-up mammogram recommended. (A) ASSESSMENT CATEGORY: BIRADS Category 1: Negative. A letter regarding these results will be sent to the patient by the facility within 30 days. Approximately 10% of breast cancers are not detected by mammography. A normal mammogram should not delay biopsy of a clinically suspicious abnormality. [id number] Electronically Signed: Brent Fleming MD at 11:47 EST ,
== END | disposition home or self-care (01) ==
LOC: OPBI 10:30
PROVIDERS: PCP Family Medicine; Referring Provider Family Medicine; Visit Provider Family Medicine
DX: Z12.31 Encounter for screening mammogram for malignant neoplasm of breast (principal)
CPT/HCPCS: 77063; 77067

== ENCOUNTER → 2024-03-30 | Outpatient (CLI) | payer MEDICARE, OTHER, SELFPAY ==
--- NOTE | 2024-03-30 07:59 | ART_ITS ---
Reason For Study: Claudication of LE Procedure A bilateral lower extremity continuous wave Doppler with analog waveform analysis and ankle brachial indexes. Left Segmental Pressures Left brachial= 142mmHg. Left posterior tibial artery = 165mmHg. Left dorsalis pedis artery = 158mmHg. Left digit = 128 mmHg. The left dorsalis pedis waveforms are triphasic. The left posterior tibial artery waveforms are triphasic. Right Segmental Pressures Right brachial= 152mmHg. Right posterior tibial artery = 162mmHg. Right dorsalis pedis artery = 160mmHg. Right digit = 134 mmHg. The right dorsalis pedis waveforms are triphasic. The right posterior tibial artery waveforms are triphasic. Indices The right ankle brachial index by the dorsalis pedis is 1.05. The right ankle brachial index by the posterior tibial artery is 1.07. The right digital-brachial index is 0.88. The left ankle brachial index by the dorsalis pedis is 1.04. The left ankle brachial index by the posterior tibial artery is 1.09. The left digital-brachial index is 0.84. VL/Ankle Brachial Index Interpretation Summary Right SANTY 1.07, normal. TBI and Doppler/PVR waveforms of the right leg normal a t rest. Left SANTY 1.09, normal. TBI and Doppler/PVR waveforms of the left leg normal at rest. Ordering Physician: Kaylah Redman Referring Physician: KAYLAH REDMAN MD Performed By: Kayleigh Cuello RVT and Student
== END | disposition home or self-care (01) ==
LOC: CVS 07:59
PROVIDERS: PCP Family Medicine; Referring Provider Family Medicine; Visit Provider Family Medicine
DX: I73.9 Peripheral vascular disease, unspecified (principal)
CPT/HCPCS: 93922

== ENCOUNTER → 2024-08-18 | Outpatient (CLI) | payer MEDICARE, OTHER, SELFPAY ==
[2024-08-18 11:11] LABS: Absolute Lymphocyte Count 2.04 X10^3/uL (0.83-4.51); Basophil# 0.05 X10^3/uL; Basophil% 0.9 % (0-1); Eosinophil# 0.58 X10^3/uL; Hemoglobin 14.7 g/dL (12.0-15.0); Lymphocyte # 2.04 X10^3/ul (0.83-4.51); Lymphocyte % 38.6 % (19-41); Mean Corp Hgb Conc 33.4 g/dL (32-36); Mean Corpuscular Hgb 31.5 pg (27.0-32.0); Mean Corpuscular Volume 94.2 fL (81-99); Mean Platelet Vol. 10.3 fl (6.2-12.0); Monocyte# 0.61 X10^3/uL; Monocyte% 11.6 % (0-10); NRBC Flagged by Analyzer 0 % (0-5); Neutrophil # 1.99 X10^3/uL (2.7-7.7); Neutrophil % 37.7 % (47-70); Platelet Count 220 K/mm3 (150-450); RBC Distribution Width CV 13.7 % (11.6-14.6); RBC Distribution Width SD 47.6 fl (35.1-43.9); Red Blood Count 4.67 M/mm3 (4.2-5.4); White Blood Count 5.3 K/mm3 (4.4-11.0)
[2024-08-18 11:34] LABS: ALB/GLOB Ratio 1.3 RATIO (0.9-2.4); AST(SGOT) 24 U/L (<=31); Alanine Aminotransfer ALT/SGPT 16 U/L (<=34); Albumin, Serum 3.5 g/dL (3.4-4.8); Alkaline Phosphatase 72 U/L (35-104); Anion Gap 12 (5-15); BUN 7 mg/dL (4-19); BUN/Creat Ratio 11.2 RATIO (10-20); Calcium,Total 8.8 mg/dL (7.6-11.0); Carbon Dioxide 23.7 mmol/L (21.0-32.0); Chloride 108 mmol/L (98-108); Cholesterol 147 mg/dL (<=200); Creatinine, Serum 0.65 mg/dL (0.70-1.20); EST Glomerular Filtration Rate 94 (>60); Globulin 2.8 g/dL (2.2-4.2); Glucose 130 mg/dL (70-99); High Density Lipoprotein 51 mg/dL; Low Density Lipoprotein Calc. 55 mg/dL; Potassium 3.8 mmol/L (3.3-5.1); Protein, Total 6.3 g/dL (5.9-8.4); Sodium Level 143 mmol/L (133-145); Total Bilirubin 0.85 mg/dL (0.00-1.30); Triglycerides 203 mg/dL; Very Low Density Lipoprotein 41 mg/dL (5-40); Vitamin D,25 Hydroxy 31.2 ng/mL (30-100); cholesterol:hdl ratio screen 2.88
== END | disposition home or self-care (01) ==
LOC: MFPLAB 08:04
PROVIDERS: PCP Family Medicine; Visit Provider Family Medicine
DX: E78.2 Mixed hyperlipidemia (principal); I10 Essential (primary) hypertension; Z71.1 Person with feared health complaint in whom no diagnosis is made
CPT/HCPCS: 36415; 80053; 80061; 82306; 84443; 85025

== ENCOUNTER → 2024-10-01 | Outpatient (CLI) | payer MEDICARE, OTHER, SELFPAY ==
--- NOTE | 2024-10-01 16:50 | RAD_ITS ---
EXAM: XR Right Shoulder Complete, 2 or More Views CLINICAL INDICATION: PAIN CHRONIC TECHNIQUE: Two or more views of the right shoulder. COMPARISON: No relevant prior studies available. FINDINGS: BONES/JOINTS: Moderate degenerative changes of the acromioclavicular glenohumeral joints. No acute fracture. No dislocation. SOFT TISSUES: Soft tissue swelling. RAD/Shoulder min 2 Views IMPRESSION: Degenerative changes as above. Reading Location: [id number]
== END | disposition home or self-care (01) ==
LOC: MTRAD 16:43
PROVIDERS: PCP Family Medicine; Referring Provider Family Medicine; Visit Provider Family Medicine
DX: M25.511 Pain in right shoulder (principal); G89.29 Other chronic pain
CPT/HCPCS: 73030

== ENCOUNTER 2024-12-15 07:30 | Outpatient (RCR) | payer MEDICARE, OTHER, SELFPAY ==
--- NOTE | 2024-10-12 09:00 | HP.PTEVAL ---
Patient's Visit Information Visit Information Visit Information: LUIS LIN is a 73 year old F referred to Physical Therapy by Kaylah Redman MD with a diagnosis of R shoulder OA. Date of Evaluation: 10/12/24 Physical Therapist: Rogerio Villela, PT, ATC Visit Plan Frequency: 2-3x /Week Duration: 4-6 Weeks Plan: R shoulder rotator cuff strengthening, scap stab ex's, A/PROM and mobs, UBE, and HEP Subjective Subjective: Pt reports the R shoulder has been sore for approximately 6 months. Pt notes her pain had an insidious onset in nature. 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 Pt reports she has had bursitis on and off over the years in her L shoulder, but this pain feels differently. Pt notes her R shoulder will pop on occasion. Pt is R hand dominant. Pt reports she has had x rays taken which revealed degenerative changes and swelling. 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 Pt denies any tingling or numbness in her R UE at this time. Pt reports she has sleep difficulty at this time as she likes to sleep on her R side and cant anymore secondary to pain. R shoulder pain ranges from 5-8/10 at this time when she is not taking pain meds. Pain R shoulder pain: Pain Intensity (Out of 10): 5 Pain Intensity Range: 8 Objective Objective: Neuro: B UE sensation is WNL to light touch. palpation: Pt has minor tenderness on the anterior aspect of the shoulder with palpation to supraspinatus. No crepitus ROM: L shoulder flex= 155, abd= 140, IR= WFL, ER= 75 degrees; R shoulder flex= 110, abd= 75 , IR= minimal limitation, ER= 50 degrees MMT: L shoulder flex= 15, abd= 19, IR= 19, ER= 17 #F; R shoulder flex= 6, abd= 6, IR= 17, ER= 15 #F Special tests: Pos empty can and speeds test Balance/Special Test Scores Quick DASH Score: 25.0000 Goals Goal 1:: Decrease R shoulder pain x 50% to aid with sleep Goal Time Frame: 4-6 Weeks Goal 2:: Increase R shoulder flex and abd ROM x 20-30 degrees to aid with overhead lifting Goal Time Frame: 4-6 Weeks Goal 3:: Increase R shoulder flexion and abd strength x 5 #F to aid with IADL's Goal Time Frame: 4-6 Weeks Goal 4:: I with HEP Goal Time Frame: 4-6 Weeks Rehabilitation Potential Physical Therapy Diagnosis: Pt has R shoulder pain, weakness, and limited ROM secondary to impingement syndrome of R shoulder Rehabilitation Potential: Good Anticipated Interventions Patient/Client Instruction: Educate patient on: Condition and Plan of Care For the Purpose of:: To improve self management Therapeutic Exercise to Include: Strength training, Endurance training, Flexibilty training, Passive ROM, Active ROM and Scapular Strength/Stabilization For the Purpose of:: To decrease pain, To increase ROM and To improve muscle performance and motor function Cryotherapy (ice pack, ice massage): Yes For the Purpose of:: To decrease pain Text: Thank you for the opportunity to evaluate your patient. For Medicare and Medicare HMO plans, please review the plan of care and approve it. It will need to be FAXED BACK to us at [phone] for Medicare purposes. For Medicare only, by signing this I certify the plan of care. Please let me know if there are questions or concerns regarding this plan of care. Physician Signature: Date:
--- NOTE | 2024-12-15 08:07 | HP.PTDCSUM ---
Discharge Summary D/C summary: It has been my pleasure to treat LUIS LIN referred by Kaylah Redman MD, with the diagnosis of R shoulder OA for a total of 23 visit(s). Discharge Date: Please see the following information for a summary of their discharge status. Subjective Subjective: I am ready for discharge Pain R shoulder pain: Pain Intensity (Out of 10): 0 Overall Improvement % Improvement: 65 Objective Objective/Function: R shoulder pain ranges from 0-3/10 R shoulder MMT: flex= 9, abd= 21, ER= 16 , IR= 19 #F R shoulder ROM: flex= 140, abd= 90 degrees Pt is I with HEP Goals Goal 1:: Decrease R shoulder pain x 50% to aid with sleep Goal Progress: Progressing Goal 2:: Increase R shoulder flex and abd ROM x 20-30 degrees to aid with overhead lifting Goal Progress: Progressing Goal 3:: Increase R shoulder flexion and abd strength x 5 #F to aid with IADL's Goal Progress: Progressing Goal 4:: I with HEP Goal Progress: Goal Met Plan Plan: R shoulder rotator cuff strengthening, scap stab ex's, A/PROM and mobs, UBE, and HEP D/C Information d/c sentence: If there are questions or concerns regarding this patient's physical therapy, please feel free to call me at [phone]. Thank you for the referral of this patient. Sincerely, Rogerio Villela, PT, ATC Balance/Gait/Functional tests Balance/Special Test Scores Quick DASH Score: 18.1800 Improvement % Improvement: 65
== END 2024-12-15 10:28 | disposition home or self-care (01) ==
LOC: PT 07:30
PROVIDERS: PCP Family Medicine; Referring Provider Family Medicine; Visit Provider Family Medicine
DX: M13.811 Other specified arthritis, right shoulder (principal)
CPT/HCPCS: 97110; 97140; 97161; 97530